=== PATIENT | female | born 1990 | race Caucasian/White ===

== ENCOUNTER 2021-09-18 16:10 | Emergency (ER) | payer MEDICAID, OTHER | END 2021-09-18 18:32 | disposition home or self-care (01) | LOC: CSHERS 16:10 | DX: O20.9 Hemorrhage in early pregnancy, unspecified (principal); O41.8X20 Other specified disorders of amniotic fluid and membranes, second trimester, not applicable or unspecified; O99.332 Smoking (tobacco) complicating pregnancy, second trimester; F17.210 Nicotine dependence, cigarettes, uncomplicated; Z3A.16 16 weeks gestation of pregnancy | CPT/HCPCS: 76815 ==